=== PATIENT | female | born 1955 | race Caucasian/White ===

== ENCOUNTER 2022-05-16 09:35 | Outpatient (CLI) | payer OTHER, MEDICARE | END 2022-05-16 09:36 | disposition home or self-care (01) | LOC: CSHULT 09:35 | PROVIDERS: ATTEND Physician Assistant Medical | DX: D12.6 Benign neoplasm of colon, unspecified (principal); K31.84 Gastroparesis; I71.4 Abdominal aortic aneurysm, without rupture; I72.3 Aneurysm of iliac artery | CPT/HCPCS: 76706 ==

== ENCOUNTER 2022-12-27 10:10 | Outpatient (CLI) | payer OTHER, MEDICARE | END 2022-12-27 10:11 | disposition home or self-care (01) | LOC: CSHCT 10:10 | PROVIDERS: ATTEND Internal Medicine Hematology & Oncology | DX: C79.51 Secondary malignant neoplasm of bone (principal); C50.919 Malignant neoplasm of unspecified site of unspecified female breast; M89.8X8 Other specified disorders of bone, other site; M17.12 Unilateral primary osteoarthritis, left knee | CPT/HCPCS: 71260; 82565 ==